=== PATIENT | female | born 1960 | race Two or more races ===

== ENCOUNTER → 2025-04-05 | Outpatient (CLI) | payer OTHER ==
[~2025-04-05] MED LIST: GADOTERATE MEGLUMINE 10 MMOL/20 ML VIAL IV ONE
--- NOTE | 2025-04-05 14:02 | HMCIMG ---
Exam Type: MRI OF THE ABDOMEN WITH AND WITHOUT CONTRAST and MR cholangiopancreatography Comparison Study: none History: R93.3 Abnormal findings on diagnostic imaging of other parts of digestive t PROTOCOL: Examination is done with multiecho multiplanar sequences before and after gadolinium administration. ASSET with multiplanar 3-D reconstructions MR cholangiopancreatography sequences are also available for review. MRCP performed customary fashion. 2D axial FIESTA fat-saturated images of abdomen, coronal thick slab MRCP ASSET scan and coronal thin slab MRCP ASSET 3 mm images and maximum intensity projection postprocessing, MIP projected in the customary circumferential and head over heels fashion. FINDINGS: No evidence of nephro or ureterolithiasis is found. No hydronephrosis or ureteral dilatation is seen. Simple cyst parapelvic right kidney seen. The stomach is unremarkable. There is no evidence of gastric dilatation. No blastic thickening is noted to suggest inflammation or tumor. There is no perforation. There is no gastric outlet obstruction. There is no ulceration. The spleen is unremarkable. It is not enlarged. The pancreas shows normal anatomy. It is not fatty replaced. It shows no lesions. The pancreatic duct is not dilated. The gallbladder is surgically absent. The adrenal glands are unremarkable. There is no enlargement. No lesions are noted. The liver is unremarkable. It shows no focal masses. The visualized segments of large and small bowel appear unremarkable. The bony and vascular structures are unremarkable for the patient's age. MRCP is likewise unremarkable. The common bile duct is well as the intrahepatic bile ducts are well seen without filling defects to suggest calculi. There are no areas of dilatation or abrupt cutoffs. IMPRESSION: NORMAL MRI OF THE ABDOMEN. Normal MRCP.
== END | disposition home or self-care (01) ==
LOC: EEVIPCON 08:58 → RAH 08:58
PROVIDERS: ATTEND Internal Medicine
DX: K86.9 Disease of pancreas, unspecified (principal); N28.1 Cyst of kidney, acquired; R93.3 Abnormal findings on diagnostic imaging of other parts of digestive tract; Z90.49 Acquired absence of other specified parts of digestive tract
CPT/HCPCS: 74183; A9575